=== PATIENT | female | born 1970 ===

== ENCOUNTER 2024-10-10 05:35 | Day surgery (SDC) | payer OTHER ==
[~2024-10-10 05:35] MED LIST: ATENOLOL25 MG PO
[2024-10-10] MEDS ORDERED: MIDAZOLAM HCL/PF 5 MG/ML VIAL IV ONE (08:15)
[2024-10-10] MEDS ORDERED: DIPHENHYDRAMINE HCL 50 MG/ML VIAL 1ML IV ONE (08:15)
[2024-10-10] MEDS ORDERED: FentaNYL CITRATE/PF 50MCG/ML 2ML VIAL IJ ONE (08:15)
== END 2024-10-10 09:35 | disposition home or self-care (01) ==
LOC: AMB-ENDOS 05:35
PROVIDERS: ATTEND Surgery
DX: K44.9 Diaphragmatic hernia without obstruction or gangrene (principal); R10.13 Epigastric pain; E66.09 Other obesity due to excess calories